=== PATIENT | female | born 1990 | race Caucasian/White ===

== ENCOUNTER 2016-07-12 22:33 | Emergency (ER) | payer SELFPAY ==
[~2016-07-12] VITALS: Ht 175.3 cm; Wt 94.9 kg
[~2016-07-12 22:33] MED LIST: ALBU8I INH; ROBIDM5S PO; ZITH250T PO
[2016-07-12 22:45] VITALS: BP 154/88; PULSE 89; RESP 18; TEMP 98.3; O2SAT 99
[2016-07-12] MEDS ORDERED: KETOROLAC TROMETHAMINE 30 MG/ML (IVP) VIAL IVP ONE (23:00)
[2016-07-12] MEDS ORDERED: SODIUM CHLORIDE 0.9% FLUSH 10 ML FLUSH IV FLUSH PRN (23:00)
--- NOTE | 2016-07-12 23:02 | PD ---
HPI Chief Complaint: Abdominal Pain Time Seen by Provider: 22:50 Travel History International Travel<30 days: No Contact w/Intl Traveler<30days: No Traveled to known affect area: No History of Present Illness HPI 26yo F with PMH of anxiety presents to the ED with left lower abdominal pain for 1 week. States pain is constant, cramping, waxes and wanes in intensity and sometimes radiates down left thigh. No alleviating or exacerbating factors. Denies any fever, chest pain, sob, n/v, abdominal pain, urinary complaints, vaginal bleeding, focal weakness or numbness. Denies any trauma. Pt states she always have clear vaginal discharge. PFSH Past Medical History Anxiety: Yes Diminished Hearing: No Genitourinary: Yes (HX OF UTI) Immunizations Current: No ?: Not LMP: 2 WEEKS AGO, ABNORMAL : 3 Para: 3 Miscarriage: 0 : 0 Past Surgical History Section: Yes (X3) Mastectomy: Yes Tonsillectomy: Yes Social History Alcohol Use: No Tobacco Use: Yes (1/2 PPD.) Substance Use: No Allergies-Medications (Allergen,Severity, Reaction): Coded Allergies: Prednisone (Verified Adverse Reaction, Intermediate, MAKES PT MEAN, 07/12/16 ) Reported Meds & Prescriptions Reported Meds & Active Scripts Active No Active Prescriptions or Reported Medications Review of Systems Except as stated in HPI: all other systems reviewed are Neg Physical Exam Narrative GENERAL: 26yo F not in distress. SKIN: Focused skin assessment warm/dry. HEAD: Atraumatic. Normocephalic. EYES: Pupils equal and round. No scleral icterus. No injection or drainage. ENT: No nasal bleeding or discharge. Mucous membranes pink and moist. NECK: Trachea midline. No JVD. CARDIOVASCULAR: Regular rate and rhythm. No murmur appreciated. RESPIRATORY: No accessory muscle use. Clear to auscultation. Breath sounds equal bilaterally. GASTROINTESTINAL: Abdomen soft, non-tender, nondistended. No rebound tenderness or guarding. Very mild ttp left groin. No hernia. No mass. PELVIC: White thick vaginal discharge. No blood. No CMT or adnexal tenderness bilaterally. MUSCULOSKELETAL: LLE: FROM left hip. States there is throbbing in leg. Sensation intact. Negative straight leg test. No obvious deformities. No clubbing. No cyanosis. No edema. NEUROLOGICAL: Awake and alert. No obvious cranial nerve deficits. Motor grossly within normal limits. Normal speech. PSYCHIATRIC: Appropriate mood and affect; insight and judgment normal. Data Data Last Documented VS Vital Signs Date Time Temp Pulse Resp B/P Pulse Ox O2 Delivery O2 Flow Rate FiO2 07/12/16 22:45 98.3 89 18 154/88 99 Orders Complete Blood Count With Diff (07/12/16 22:57) Comprehensive Metabolic Panel (07/12/16 22:57) Urinalysis - C+S If Indicated (07/12/16 22:57) Iv Access Insert/Monitor (07/12/16 22:57) Ecg Monitoring (07/12/16 22:57) Oximetry (07/12/16 22:57) Sodium Chloride 0.9% Flush (Ns Flush) (07/12/16 23:00) Ketorolac Inj (Toradol Inj) (07/12/16 23:00) Ed Urine Pregnancytest Poc (07/12/16 22:57) Creatine Kinase (Cpk) (07/12/16 23:06) Gc And Chlamydia Pcr (07/12/16 23:33) Wet Prep Profile (07/12/16 23:33) Labs Laboratory Tests Test 07/12/16 07/12/16 23:10 23:35 White Blood Count 8.8 TH/MM3 Red Blood Count 4.85 MIL/MM3 Hemoglobin 13.2 GM/DL Hematocrit 38.8 % Mean Corpuscular Volume 80.1 FL Mean Corpuscular Hemoglobin 27.3 PG Mean Corpuscular Hemoglobin 34.1 % Concent Red Cell Distribution Width 12.7 % Platelet Count 277 TH/MM3 Mean Platelet Volume 8.3 FL Neutrophils (%) (Auto) 62.5 % Lymphocytes (%) (Auto) 28.0 % Monocytes (%) (Auto) 5.9 % Eosinophils (%) (Auto) 3.1 % Basophils (%) (Auto) 0.5 % Neutrophils # (Auto) 5.5 TH/MM3 Lymphocytes # (Auto) 2.5 TH/MM3 Monocytes # (Auto) 0.5 TH/MM3 Eosinophils # (Auto) 0.3 TH/MM3 Basophils # (Auto) 0.0 TH/MM3 CBC Comment DIFF FINAL Differential Comment Urine Color YELLOW Urine Turbidity CLEAR Urine pH 7.0 Urine Specific Tebbetts 1.017 Urine Protein NEG mg/dL Urine Glucose (UA) NEG mg/dL Urine Ketones NEG mg/dL Urine Occult Blood NEG Urine Nitrite NEG Urine Bilirubin NEG Urine Leukocyte Esterase NEG Urine RBC 0-2 /hpf Urine WBC 0-2 /hpf Urine Squamous Epithelial 6-8 /hpf Cells Urine Bacteria NONE /hpf Microscopic Urinalysis Comment CULT NOT INDICATED Sodium Level 143 MEQ/L Potassium Level 3.5 MEQ/L Chloride Level 108 MEQ/L Carbon Dioxide Level 27.9 MEQ/L Anion Gap 7 MEQ/L Blood Urea Nitrogen 10 MG/DL Creatinine 0.73 MG/DL Estimat Glomerular Filtration 95 ML/MIN Rate Random Glucose 99 MG/DL Calcium Level 8.5 MG/DL Total Bilirubin 0.2 MG/DL Aspartate Amino Transf 20 U/L (AST/SGOT) Alanine Aminotransferase 37 U/L (ALT/SGPT) Alkaline Phosphatase 68 U/L Total Protein 7.2 GM/DL Albumin 3.8 GM/DL Clue Cells (Wet Prep) NONE SEEN Vaginal Trichomonas (Wet Prep) NONE SEEN Vaginal Yeast (Wet Prep) NONE SEEN MDM Medical Decision Making Medical Screen Exam Complete: Yes Emergency Medical Condition: Yes Differential Diagnosis Nephrolithiasis vs. UTI vs. musculoskeletal pain Narrative Course 26yo F with anxiety here with left lower abdominal pain for 1 week. On my exam , she really did not have pain in the abdomen but more in the left inguinal region. Urine negative. Labs reviewed, no leukocytosis. CMP unremarkable. CPK normal. UA showed no leukocyte or nitrite. 6-8 squamous epithelial cells. Culture not indicated. Wet prep negative. Pt given toradol and reevaluated at bedside. States pain has completely resolved. Abdomen soft , NT/ND. No rebound tenderness or guarding. VS stable. Return precautions given. Diagnosis Primary Impression: Abdominal pain Qualified Code: R10.32 - Left lower quadrant pain Patient Instructions: General Instructions Departure Forms: Tests/Procedures Additional Instructions: Please follow up with your PMD in 3-7 days. Return to the ED if symptoms worsen. Med/Other Pt SpecificInfo: Prescription(s) given Scripts Acetaminophen (Tylenol)325 Mg Kaw442 Mg PO Q6H PRN (PAIN SCALE 1 TO 4) #20 TAB Ref 0 Prov:Germania Sanches DO 07/12/16 Disposition: 01 DISCHARGE HOME Condition: Stable Germania Sanches DO Jul 12, 2016 23:01
[2016-07-12 23:29] LABS: AUTOMATED NEUTROPHIL # 5.5 TH/MM3 (1.8-7.7); BASOPHIL % 0.5 % (0.0-2.0); EOSINOPHIL # 0.3 TH/MM3 (0-0.4); EOSINOPHIL % 3.1 % (0.0-4.0); HEMATOCRIT 38.8 % (35.0-46.0); HEMO FLAGS DIFF FINAL; LYMPHOCYTE # 2.5 TH/MM3 (1.0-4.8); MEAN CELL VOLUME 80.1 FL (80.0-100.0); MEAN CORPUSCULAR HEMOGLOBIN 27.3 PG (27.0-34.0); MEAN CORPUSCULAR HGB CONC 34.1 % (32.0-36.0); MONO % 5.9 % (0.0-8.0); NEUT % 62.5 % (16.0-70.0); PLATELET COUNT 277 TH/MM3 (150-450); RED BLOOD COUNT 4.85 MIL/MM3 (4.00-5.30); RED CELL DISTRIBUTION WIDTH 12.7 % (11.6-17.2); WHITE BLOOD COUNT 8.8 TH/MM3 (4.0-11.0)
[2016-07-12 23:31] LABS: BLOOD, URINE NEG (NEG); GLUCOSE,URINE NEG (NEG); KETONE, URINE NEG (NEG); NITRITE,URINE NEG (NEG)
[2016-07-12 23:35] LABS: CHLORIDE 108 MEQ/L (98-107); POTASSIUM 3.5 MEQ/L (3.5-5.1); SODIUM (NA) 143 MEQ/L (136-145)
[2016-07-12 23:37] LABS: URINE COLOR YELLOW (YELLW/STRAW)
[2016-07-12 23:38] LABS: COMMENT (UR) CULT NOT INDICATED; CULTURE IF INDICATED CULT NOT INDICATED; RBC, URINE 0-2 /hpf (0-3); WBC, URINE 0-2 /hpf (0-5)
[2016-07-12 23:39] LABS: ANION GAP 7 MEQ/L (5-15); BICARBONATE 27.9 MEQ/L (21.0-32.0); BLOOD UREA NITROGEN 10 MG/DL (7-18)
[2016-07-12 23:42] LABS: ALT (GPT) 37 U/L (10-53); AST (GOT) 20 U/L (15-37); GLOMERULAR FILTRATION RATE 95 ML/MIN (>89)
[2016-07-12 23:44] LABS: TOTAL BILIRUBIN ADULT 0.2 MG/DL (0.2-1.0)
[2016-07-12 23:45] LABS: ALKALINE PHOSPHATASE 68 U/L (45-117)
[2016-07-12] MEDS ORDERED: TYLE325T PO (23:50)
[2016-07-13 00:07] VITALS: BP 152/77
[2016-07-13 09:59] LABS: CHLAMYDIA PCR NOT DETECTED (NOT DETECT); NEISSERIA PCR NOT DETECTED (NOT DETECT)
== END 2016-07-13 00:10 | disposition home or self-care (01) ==
LOC: PHED 22:33
DX: R10.32 Left lower quadrant pain (principal); F41.9 Anxiety disorder, unspecified; F17.200 Nicotine dependence, unspecified, uncomplicated
CPT/HCPCS: 80053; 81001; 82550; 84703; 85025; 87210; 87491; 87591; 96374; 99284; J1885